=== PATIENT | male | born 1955 | race Asian ===

== ENCOUNTER 2023-01-25 14:11 | Inpatient (IN) | payer MEDICARE ==
[~2023-01-25] VITALS: Ht 165.1 cm; Wt 65.0 kg
[2023-01-25] VITALS (15 sets, daily range): BP systolic 93–190; BP diastolic 57–102; PULSE 69–114; RESP 22–32; TEMP 93.3–98.9; O2SAT 92–100
[2023-01-25 16:56] LABS: MEAN CORPUSCULAR HEMOGLOBIN 26.8 pg (26.0-34.0); MEAN CORPUSCULAR HGB CONC 29.6 G/dL (31.0-37.0); MEAN CORPUSCULAR VOLUME 90 fL (80-100); PLATELET COUNT (AUTO) 446 K/uL (150-450); RED CELL DISTRIBUTION WIDTH 26.9 % (11.5-14.5)
[2023-01-25] MEDS ORDERED: AZITHROMYCIN 500 MG/NS 250 ML IV ONE (17:00)
[2023-01-25] MEDS ORDERED: FUROSEMIDE 40 MG/4 ML VIAL IVP ONE ×2 (17:00)
[2023-01-25] MEDS ORDERED: CefTRIAXone 1 GM/DEXTROSE 50 ML IV ONE (17:00)
[2023-01-25] MEDS ORDERED: NITROGLYCERIN 2% (1 GM=INCH) OINTMENT PACKET TP ONE ×2 (17:00)
[2023-01-25 17:05] LABS: ANION GAP 11 mmol/L (8-16); CALCIUM, TOTAL 8.2 mg/dL (8.8-10.5); CARBON DIOXIDE 24 mmol/L (22-29); CHLORIDE 101 mmol/L (98-107); CREATININE 1.11 mg/dL (0.60-1.30); GLOMERULAR FILTR. RATE CALC > 60 mL/min (>60); GLUCOSE,RANDOM 133 mg/dL (70-110); SODIUM SERUM 136 mmol/L (136-145)
[2023-01-25] MEDS ORDERED: IPRATROPIUM BROMIDE 0.5 MG/2.5 ML NEB SOLUTION NEB ONE ×3 (17:11→17:15)
[2023-01-25] MEDS ORDERED: ALBUTEROL SULFATE 2.5 MG/0.5 ML NEB SOLUTION NEB ONE (17:12)
[2023-01-25] MEDS ORDERED: 0.9% SODIUM CHLORIDE 5 ML NEB SOLUTION NEB ONE (17:12)
[2023-01-25 17:15] LABS: APPEARANCE,URINE TURBID (CLEAR); BILIRUBIN,URINE NEGATIVE (NEGATIVE); GLUCOSE, URINE (UA) NEGATIVE (NEGATIVE); KETONES,URINE NEGATIVE (NEGATIVE); LEUKOCYTE ESTERASE ,URINE SMALL (NEGATIVE); NITRATE,URINE NEGATIVE (NEGATIVE); OCCULT BLOOD,URINE LARGE (NEGATIVE); PROTEIN,URINE 300-600,SEE CONFIRM mg/dL (NEGATIVE); SPECIFIC GRAVITIY, URINE 1.019 (1.003-1.030); UROBILINOGEN,URINE <=1.0 mg/dL (<=1.0)
[2023-01-25] MEDS ORDERED: ALBUTEROL SULFATE 2.5 MG/0.5 ML 5 ML NEB SOLUTION NEB ONE (17:15)
[2023-01-25 17:17] LABS: INR 1.2 (0.9-1.1); PROTHROMBIN TIME 12.4 SEC (9.4-11.6)
[2023-01-25] MEDS: ALBUTEROL SULFATE 2.5 MG/0.5 ML NEB SOLUTION NEB ONE ×2 (17:18→17:20)
[2023-01-25 17:33] LABS: ALANINE AMINOTRANSFERASE 21 U/L (12-78); ALBUMIN 2.6 g/dL (3.4-5.0); ALKALINE PHOSPHATASE 113 U/L (46-116); ASPARTATE AMINOTRANSFERASE 23 U/L (15-37); B-TYPE NATRIURETIC PEPTIDE 1370 pg/mL (0-100); BILIRUBIN,TOTAL 0.3 mg/dL (0.1-1.0); CREATINE KINASE, TOTAL ONLY 257 U/L (39-308); TOTAL PROTEIN, SERUM 7.9 g/dL (6.4-8.2)
[2023-01-25 17:34] LABS: HEMATOCRIT 18.1 % (41-53); HEMOGLOBIN 5.4 g/dL (13.5-17.5)
[2023-01-25 17:50] LABS: RBC,URINE Full Field /HPF (0-2); SULFOSALICYLIC ACID,URINE 4+ (Negative)
[2023-01-25 17:53] LABS: BACTERIA,URINE Moderate /HPF (None Seen)
[2023-01-25] MEDS ORDERED: PANTOPRAZOLE SODIUM 80 MG in SODIUM CHLORIDE 0.9% 100 ML IV SCH (18:00)
[2023-01-25 18:08] LABS: INR 1.2 (0.9-1.1); PROTHROMBIN TIME 12.5 SEC (9.4-11.6)
[2023-01-25 18:39] LABS: ABG BASE EXCESS -10.2 mmol/L (-2.0-3.0); ABG CARBOXYHEMOGLOBIN 2.7 % (0.0-1.5); ABG HCO3 16.7 mmol/L (22.0-26.0); ABG METHEMOGLOBIN 0.3 % (0.0-1.5); ABG OXYGEN CONTENT 7.7 mL/dL (15.0-23.0); ABG OXYHEMOGLOBIN 91.2 % (94.0-100.0); ABG PCO2 66 mmHg (35-45); PO2, ARTERIAL BG 97.5 mmHg (79.0-87.0); SOURCE, BLOOD GAS ARTERIAL; TEMPERATURE, FAHRENHEIT, BG 98.6 FAHREN (96.0-98.6)
[2023-01-25 18:40] LABS: ABG TOTAL HEMOGLOBIN 5.8 G/dL (12.0-18.0)
[2023-01-25 18:41] LABS: O2 DEVICE,BLOOD GAS BIPAP (ROOM AIR); SITE, BLOOD GAS RT RADIAL
[2023-01-25] MEDS ORDERED: SODIUM CHLORIDE 0.9% 1,000 ML IV ONE (18:45)
[2023-01-25] MEDS ORDERED: FUROSEMIDE 20 MG/2 ML VIAL IVP ONE (18:45)
[2023-01-25] MEDS ORDERED: IOHEXOL 350 MG/ML 100 ML VIAL ONE (18:55)
[2023-01-25] MEDS ORDERED: SODIUM CHLORIDE 0.9% 100 ML ONE (18:55)
[2023-01-25 19:00] LABS: PATHOLOGY REVIEW, DIFF YES
[2023-01-25 19:01] LABS: BAND NEUTROPHILS % (MANUAL) 0 % (0-5)
[2023-01-25 19:08] LABS: LYMPHOCYTES % (MANUAL) 20 % (22-44); MONOCYTES % (MANUAL) 5 % (2-9); SEGMENTED NEUTROPHILS % 75 % (40-70)
[2023-01-25] MEDS ORDERED: MORPHINE SULFATE 2 MG/ML SYRINGE IVP PRN (21:00)
[2023-01-25] MEDS ORDERED: ZOLPIDEM TARTRATE 5 MG TABLET PO PRN (21:00)
[2023-01-25] MEDS: METOPROLOL TARTRATE 25 MG TABLET PO SCH (21:00)
[2023-01-25] MEDS ORDERED: ONDANSETRON HCL 4 MG/2 ML VIAL IVP PRN (21:00)
[2023-01-25] MEDS ORDERED: HYDROCODONE/ACETAMINOPHEN 5-325 MG TABLET PO PRN (21:00)
[2023-01-25] MEDS ORDERED: BISACODYL 10 MG RECTAL RECTAL SUPPOSITORY PR PRN (21:00)
[2023-01-25] MEDS ORDERED: ACETAMINOPHEN 325 MG TABLET PO PRN (21:00)
[2023-01-25] MEDS ORDERED: MAGNESIUM HYDROXIDE SUSPENSION 30 ML UDCUP PO PRN (21:00)
[2023-01-25] MEDS: DOCUSATE SODIUM 100 MG CAPSULE PO SCH (21:00)
[2023-01-25 21:44] LABS: ABG HCO3 15.9 mmol/L (22.0-26.0); ABG METHEMOGLOBIN 0.3 % (0.0-1.5); ABG OXYGEN CONTENT 8.8 mL/dL (15.0-23.0); ABG OXYGEN SATURATION 90.9 % (95.0-98.0); ABG OXYHEMOGLOBIN 88.8 % (94.0-100.0); PO2, ARTERIAL BG 84.3 mmHg (79.0-87.0); SOURCE, BLOOD GAS ARTERIAL; TEMPERATURE, FAHRENHEIT, BG 98.6 FAHREN (96.0-98.6)
[2023-01-25] MEDS ORDERED: HydrALAZINE HCL 20 MG/ML VIAL IVP PRN (21:45)
[2023-01-25] MEDS: LORazepam 2 MG/ML VIAL IVP PRN (21:50)
[2023-01-25] MEDS: FUROSEMIDE 20 MG/2 ML VIAL IVP SCH (21:51)
[2023-01-25] MEDS ORDERED: ETOMIDATE 2 MG/ML 10 ML VIAL IVP ONE (22:00)
[2023-01-25] MEDS ORDERED: SODIUM BICARBONATE [ADULT] 8.4% 50 MEQ/50 ML SYRINGE IVP ONE (22:00)
[2023-01-25] MEDS ORDERED: ROCURONIUM BROMIDE 10 MG/ML 5 ML VIAL IVP ONE (22:00)
[2023-01-25] MEDS: PROPOFOL 1000 MG/ISO-OSM 100 ML IV PRN (23:24)
[2023-01-25 23:53] LABS: ABG PCO2 73 mmHg (35-45); ABG PH 7.045 (7.35-7.450)
[2023-01-25 23:54] LABS: ABG TOTAL HEMOGLOBIN 6.9 G/dL (12.0-18.0); SITE, BLOOD GAS RT RADIAL
[2023-01-26] VITALS (25 sets, daily range): BP systolic 83–146; BP diastolic 56–75; PULSE 46–71; RESP 20–25; TEMP 92.7–98.4; O2SAT 97–100
[2023-01-26 00:30] LABS: ABG BASE EXCESS -3.2 mmol/L (-2.0-3.0); ABG CARBOXYHEMOGLOBIN 2.1 % (0.0-1.5); ABG METHEMOGLOBIN 0.3 % (0.0-1.5); ABG OXYGEN CONTENT 10.4 mL/dL (15.0-23.0); ABG OXYGEN SATURATION 98.9 % (95.0-98.0); ABG OXYHEMOGLOBIN 96.5 % (94.0-100.0); ABG PCO2 38 mmHg (35-45); ABG PH 7.381 (7.35-7.450); ABG TOTAL HEMOGLOBIN 7.4 G/dL (12.0-18.0); PO2, ARTERIAL BG 135.4 mmHg (79.0-87.0); SITE, BLOOD GAS RT RADIAL; SOURCE, BLOOD GAS ARTERIAL; TEMPERATURE, FAHRENHEIT, BG 98.6 FAHREN (96.0-98.6)
[2023-01-26 00:31] LABS: PEEP,BG 5 cm H2O; VT, ABG 450 ml
[2023-01-26] MEDS ORDERED: PHENYLEPHRINE 200 MG/D5%-WATER 250 ML IV PRN (01:30)
[2023-01-26] MEDS: PANTOPRAZOLE SODIUM 80 MG in SODIUM CHLORIDE 0.9% 100 ML IV SCH ×3 (02:16→17:34)
[2023-01-26] MEDS: PROPOFOL 1000 MG/ISO-OSM 100 ML IV PRN ×3 (06:31→22:39)
[2023-01-26 06:45] LABS: BASOPHILS % (AUTO) 0.7 % (0.0-2.0); EOSINOPHILS % (AUTO) 0 % (1.0-6.0); HEMATOCRIT 25.1 % (41-53); HEMOGLOBIN 8.1 g/dL (13.5-17.5); LYMPHOCYTES # (AUTO) 1.2 K/uL (1.0-4.8); LYMPHOCYTES % (AUTO) 12.5 % (22.0-44.0); MEAN CORPUSCULAR HEMOGLOBIN 28.8 pg (26.0-34.0); MEAN CORPUSCULAR HGB CONC 32.1 G/dL (31.0-37.0); MEAN CORPUSCULAR VOLUME 90 fL (80-100); MONOCYTES # (AUTO) 0.5 K/uL (0.1-1.0); MONOCYTES % (AUTO) 5.2 % (2.0-9.0); NEUTROPHILS # (AUTO) 7.6 K/uL (1.8-7.7); NEUTROPHILS % (AUTO) 81.6 % (40.0-70.0); PLATELET COUNT (AUTO) 354 K/uL (150-450); RED CELL DISTRIBUTION WIDTH 20.2 % (11.5-14.5)
[2023-01-26 06:51] LABS: CALCIUM, TOTAL 7.8 mg/dL (8.8-10.5); CREATININE 1.3 mg/dL (0.60-1.30); POTASSIUM 3.8 mmol/L (3.5-5.1)
[2023-01-26] MEDS ORDERED: IOHEXOL 350 MG/ML 100 ML VIAL ONE (08:53)
[2023-01-26] MEDS ORDERED: SODIUM CHLORIDE 0.9% 100 ML ONE (08:53)
[2023-01-26] MEDS ORDERED: PANTOPRAZOLE SODIUM 40 MG DR TABLET PO SCH (09:00)
[2023-01-26] MEDS: FUROSEMIDE 20 MG/2 ML VIAL IVP SCH ×2 (10:07→20:20)
[2023-01-26] MEDS: ATORVASTATIN CALCIUM 20 MG TABLET PO SCH (10:08)
[2023-01-26] MEDS: DOCUSATE SODIUM 100 MG CAPSULE PO SCH ×2 (10:08→20:20)
[2023-01-26] MEDS: ETHYL ALCOHOL 62% ANTISEPTIC NASAL SANITIZER 0.6 ML AMPUL NASAL SCH ×2 (10:08→20:20)
[2023-01-26] MEDS: METOPROLOL TARTRATE 25 MG TABLET PO SCH (10:08)
[2023-01-26] MEDS: LISINOPRIL 5 MG TABLET PO SCH (10:11)
[2023-01-26] MEDS: IPRATROPIUM BROMIDE 0.5 MG/2.5 ML NEB SOLUTION NEB SCH ×4 (12:00→22:32)
[2023-01-26] MEDS: ALBUTEROL SULFATE 2.5 MG/0.5 ML NEB SOLUTION NEB SCH ×4 (12:00→22:32)
[2023-01-26] MEDS: CefTRIAXone SODIUM 2 GM in DEXTROSE 5%-WATER 50 ML IV SCH (13:07)
[2023-01-26] MEDS: MetroNIDAZOLE 500 MG/NACL 100 ML IV SCH ×2 (14:12→22:33)
[2023-01-26] MEDS: DOXYCYCLINE HYCLATE 100 MG in DEXTROSE 5%-WATER 100 ML IV SCH (17:29)
[2023-01-26] MEDS ORDERED: SODIUM CHLORIDE 0.9% 250 ML IV ONE (17:33)
[2023-01-26] MEDS: BUDESONIDE 0.5 MG/2 ML NEB SOLUTION NEB SCH (19:24)
[2023-01-27] VITALS (27 sets, daily range): BP systolic 105–130; BP diastolic 56–72; PULSE 50–106; RESP 20–24; TEMP 97–99.6; O2SAT 97–100
[2023-01-27] MEDS: IPRATROPIUM BROMIDE 0.5 MG/2.5 ML NEB SOLUTION NEB SCH ×6 (02:55→23:02)
[2023-01-27] MEDS: ALBUTEROL SULFATE 2.5 MG/0.5 ML NEB SOLUTION NEB SCH ×6 (02:55→23:02)
[2023-01-27] MEDS: PANTOPRAZOLE SODIUM 80 MG in SODIUM CHLORIDE 0.9% 100 ML IV SCH ×3 (03:41→22:36)
[2023-01-27] MEDS: DOXYCYCLINE HYCLATE 100 MG in DEXTROSE 5%-WATER 100 ML IV SCH ×2 (03:42→15:46)
[2023-01-27] MEDS ORDERED: SODIUM CHLORIDE 0.9% 250 ML IV ONE ×2 (05:27→14:05)
[2023-01-27] MEDS: PROPOFOL 1000 MG/ISO-OSM 100 ML IV PRN ×3 (05:30→22:37)
[2023-01-27] MEDS: MetroNIDAZOLE 500 MG/NACL 100 ML IV SCH ×3 (05:34→22:36)
[2023-01-27 05:35] LABS: CALCIUM, TOTAL 7.5 mg/dL (8.8-10.5); CREATININE 1.61 mg/dL (0.60-1.30); POTASSIUM 3.3 mmol/L (3.5-5.1)
[2023-01-27 06:05] LABS: BASOPHILS % (AUTO) 0.6 % (0.0-2.0); EOSINOPHILS % (AUTO) 1.1 % (1.0-6.0); HEMOGLOBIN 7.1 g/dL (13.5-17.5); LYMPHOCYTES # (AUTO) 1.2 K/uL (1.0-4.8); LYMPHOCYTES % (AUTO) 15.8 % (22.0-44.0); MEAN CORPUSCULAR HEMOGLOBIN 28.7 pg (26.0-34.0); MEAN CORPUSCULAR HGB CONC 32.1 G/dL (31.0-37.0); MEAN CORPUSCULAR VOLUME 89 fL (80-100); MONOCYTES # (AUTO) 0.7 K/uL (0.1-1.0); MONOCYTES % (AUTO) 9.4 % (2.0-9.0); NEUTROPHILS # (AUTO) 5.5 K/uL (1.8-7.7); NEUTROPHILS % (AUTO) 73.1 % (40.0-70.0); PLATELET COUNT (AUTO) 317 K/uL (150-450); RED BLOOD CELL COUNT(AUTO) 2.47 MIL/uL (4.50-5.90); RED CELL DISTRIBUTION WIDTH 20.9 % (11.5-14.5)
[2023-01-27] MEDS: BUDESONIDE 0.5 MG/2 ML NEB SOLUTION NEB SCH ×2 (08:02→19:26)
[2023-01-27] MEDS: ATORVASTATIN CALCIUM 20 MG TABLET PO SCH (08:57)
[2023-01-27] MEDS: FUROSEMIDE 20 MG/2 ML VIAL IVP SCH (08:57)
[2023-01-27] MEDS: LISINOPRIL 5 MG TABLET PO SCH (08:58)
[2023-01-27] MEDS: METOPROLOL TARTRATE 25 MG TABLET PO SCH (08:58)
[2023-01-27] MEDS: ETHYL ALCOHOL 62% ANTISEPTIC NASAL SANITIZER 0.6 ML AMPUL NASAL SCH ×2 (08:58→21:41)
[2023-01-27] MEDS: DOCUSATE SODIUM 100 MG CAPSULE PO SCH ×2 (08:59→21:00)
[2023-01-27] MEDS: CefTRIAXone SODIUM 2 GM in DEXTROSE 5%-WATER 50 ML IV SCH (12:44)
[2023-01-27] MEDS ORDERED: POTASSIUM CHLORIDE 20 MEQ ER TABLET PO PRN (13:00)
[2023-01-27] MEDS: POTASSIUM CHL 10 MEQ/WATER 50 ML IV PRN ×4 (14:08→23:30)
[2023-01-27] MEDS: FUROSEMIDE 40 MG/4 ML VIAL IVP SCH (21:41)
[2023-01-28] VITALS (27 sets, daily range): BP systolic 106–151; BP diastolic 56–79; PULSE 62–74; RESP 17–28; TEMP 97.3–99.4; O2SAT 97–100
[2023-01-28] MEDS: POTASSIUM CHL 10 MEQ/WATER 50 ML IV PRN ×5 (00:33→09:52)
[2023-01-28] MEDS: IPRATROPIUM BROMIDE 0.5 MG/2.5 ML NEB SOLUTION NEB SCH ×6 (02:52→22:50)
[2023-01-28] MEDS: ALBUTEROL SULFATE 2.5 MG/0.5 ML NEB SOLUTION NEB SCH ×6 (02:52→22:50)
[2023-01-28] MEDS: PROPOFOL 1000 MG/ISO-OSM 100 ML IV PRN ×2 (03:04→08:31)
[2023-01-28] MEDS: DOXYCYCLINE HYCLATE 100 MG in DEXTROSE 5%-WATER 100 ML IV SCH ×2 (04:06→17:17)
[2023-01-28] MEDS: MetroNIDAZOLE 500 MG/NACL 100 ML IV SCH ×3 (05:33→22:50)
[2023-01-28 06:16] LABS: BASOPHILS % (AUTO) 0.8 % (0.0-2.0); EOSINOPHILS % (AUTO) 1.1 % (1.0-6.0); HEMOGLOBIN 7.8 g/dL (13.5-17.5); LYMPHOCYTES # (AUTO) 1.2 K/uL (1.0-4.8); LYMPHOCYTES % (AUTO) 16.8 % (22.0-44.0); MEAN CORPUSCULAR HEMOGLOBIN 28.8 pg (26.0-34.0); MEAN CORPUSCULAR HGB CONC 32.4 G/dL (31.0-37.0); MEAN CORPUSCULAR VOLUME 89 fL (80-100); MONOCYTES # (AUTO) 0.7 K/uL (0.1-1.0); MONOCYTES % (AUTO) 9.9 % (2.0-9.0); NEUTROPHILS % (AUTO) 71.4 % (40.0-70.0); PLATELET COUNT (AUTO) 306 K/uL (150-450); RED BLOOD CELL COUNT(AUTO) 2.71 MIL/uL (4.50-5.90); RED CELL DISTRIBUTION WIDTH 21.2 % (11.5-14.5)
[2023-01-28 06:29] LABS: CALCIUM, TOTAL 7.8 mg/dL (8.8-10.5); CREATININE 1.5 mg/dL (0.60-1.30); POTASSIUM 3.4 mmol/L (3.5-5.1)
[2023-01-28] MEDS: BUDESONIDE 0.5 MG/2 ML NEB SOLUTION NEB SCH ×2 (08:00→19:43)
[2023-01-28] MEDS: PANTOPRAZOLE SODIUM 80 MG in SODIUM CHLORIDE 0.9% 100 ML IV SCH ×2 (08:16→18:47)
[2023-01-28] MEDS: FUROSEMIDE 40 MG/4 ML VIAL IVP SCH (08:17)
[2023-01-28] MEDS: ETHYL ALCOHOL 62% ANTISEPTIC NASAL SANITIZER 0.6 ML AMPUL NASAL SCH ×2 (08:17→21:27)
[2023-01-28] MEDS: ATORVASTATIN CALCIUM 20 MG TABLET PO SCH (08:18)
[2023-01-28] MEDS: DOCUSATE SODIUM 100 MG CAPSULE PO SCH ×2 (08:18→21:00)
[2023-01-28] MEDS: METOPROLOL TARTRATE 25 MG TABLET PO SCH (08:18)
[2023-01-28] MEDS: LISINOPRIL 5 MG TABLET PO SCH (08:19)
[2023-01-28] MEDS ORDERED: FUROSEMIDE 40 MG/4 ML VIAL IVP SCH (09:00)
[2023-01-28 11:49] LABS: ABG BASE EXCESS 2.1 mmol/L (-2.0-3.0); ABG CARBOXYHEMOGLOBIN 1.1 % (0.0-1.5); ABG HCO3 26.3 mmol/L (22.0-26.0); ABG METHEMOGLOBIN 0.3 % (0.0-1.5); ABG OXYGEN CONTENT 12.4 mL/dL (15.0-23.0); ABG OXYGEN SATURATION 95.1 % (95.0-98.0); ABG OXYHEMOGLOBIN 93.8 % (94.0-100.0); ABG PCO2 36 mmHg (35-45); ABG PH 7.468 (7.35-7.450); ABG TOTAL HEMOGLOBIN 9.3 G/dL (12.0-18.0); PO2, ARTERIAL BG 75.6 mmHg (79.0-87.0); SOURCE, BLOOD GAS ARTERIAL; TEMPERATURE, FAHRENHEIT, BG 99.4 FAHREN (96.0-98.6)
[2023-01-28 11:52] LABS: ABG A-A DIFF O2 95.2 mmHg (10-20.0); CPAP, BG 0 cm H2O; O2 DEVICE,BLOOD GAS VENTILATOR (ROOM AIR); PRESSURE SUPPORT, BG 8 cm H2O; SITE, BLOOD GAS LFT RADIAL; SPONTANEOUS VT, BG 470 ml; VENT MODE, BG CPAP (ROOM AIR)
[2023-01-28] MEDS: CefTRIAXone SODIUM 2 GM in DEXTROSE 5%-WATER 50 ML IV SCH (13:29)
[2023-01-28] MEDS: METOPROLOL TARTRATE 5 MG/5 ML VIAL IVP SCH ×2 (17:18→23:54)
[2023-01-28] MEDS ORDERED: SODIUM CHLORIDE 0.9% 500 ML IV ONE (17:24)
[2023-01-28] MEDS: LORazepam 2 MG/ML VIAL IVP PRN (19:11)
[2023-01-29] VITALS (20 sets, daily range): BP systolic 140–149; BP diastolic 70–76; PULSE 62–74; RESP 18–20; TEMP 98.6–99.2; O2SAT 93–100
[2023-01-29] MEDS: DOXYCYCLINE HYCLATE 100 MG in DEXTROSE 5%-WATER 100 ML IV SCH ×2 (03:44→15:44)
[2023-01-29] MEDS: IPRATROPIUM BROMIDE 0.5 MG/2.5 ML NEB SOLUTION NEB SCH ×6 (03:46→23:00)
[2023-01-29] MEDS: ALBUTEROL SULFATE 2.5 MG/0.5 ML NEB SOLUTION NEB SCH ×6 (03:46→23:00)
[2023-01-29] MEDS: PANTOPRAZOLE SODIUM 80 MG in SODIUM CHLORIDE 0.9% 100 ML IV SCH ×2 (04:36→14:36)
[2023-01-29] MEDS: MetroNIDAZOLE 500 MG/NACL 100 ML IV SCH ×3 (05:34→22:04)
[2023-01-29] MEDS: METOPROLOL TARTRATE 5 MG/5 ML VIAL IVP SCH ×3 (05:34→18:50)
[2023-01-29 05:43] LABS: BASOPHILS % (AUTO) 1.8 % (0.0-2.0); EOSINOPHILS % (AUTO) 0.7 % (1.0-6.0); HEMATOCRIT 27.3 % (41-53); HEMOGLOBIN 8.5 g/dL (13.5-17.5); LYMPHOCYTES # (AUTO) 1.2 K/uL (1.0-4.8); LYMPHOCYTES % (AUTO) 14.1 % (22.0-44.0); MEAN CORPUSCULAR HEMOGLOBIN 27.8 pg (26.0-34.0); MEAN CORPUSCULAR VOLUME 90 fL (80-100); MONOCYTES # (AUTO) 0.7 K/uL (0.1-1.0); MONOCYTES % (AUTO) 7.9 % (2.0-9.0); NEUTROPHILS # (AUTO) 6.5 K/uL (1.8-7.7); NEUTROPHILS % (AUTO) 75.5 % (40.0-70.0); PLATELET COUNT (AUTO) 338 K/uL (150-450); RED BLOOD CELL COUNT(AUTO) 3.04 MIL/uL (4.50-5.90)
[2023-01-29 05:52] LABS: CALCIUM, TOTAL 8.3 mg/dL (8.8-10.5); CREATININE 1.36 mg/dL (0.60-1.30); POTASSIUM 3.7 mmol/L (3.5-5.1)
[2023-01-29] MEDS: BUDESONIDE 0.5 MG/2 ML NEB SOLUTION NEB SCH ×2 (08:35→20:22)
[2023-01-29] MEDS: ATORVASTATIN CALCIUM 20 MG TABLET PO SCH (09:00)
[2023-01-29] MEDS: METOPROLOL TARTRATE 25 MG TABLET PO SCH (09:00)
[2023-01-29] MEDS: DOCUSATE SODIUM 100 MG CAPSULE PO SCH ×2 (09:00→20:15)
[2023-01-29] MEDS: LISINOPRIL 5 MG TABLET PO SCH (09:00)
[2023-01-29] MEDS: ETHYL ALCOHOL 62% ANTISEPTIC NASAL SANITIZER 0.6 ML AMPUL NASAL SCH ×2 (10:12→22:05)
[2023-01-29] MEDS: CefTRIAXone SODIUM 2 GM in DEXTROSE 5%-WATER 50 ML IV SCH (13:41)
[2023-01-30] VITALS (12 sets, daily range): BP systolic 123–163; BP diastolic 64–81; PULSE 61–78; RESP 18–20; TEMP 97.5–98.8; O2SAT 95–99
[2023-01-30] MEDS: METOPROLOL TARTRATE 5 MG/5 ML VIAL IVP SCH ×4 (00:17→18:33)
[2023-01-30] MEDS: PANTOPRAZOLE SODIUM 80 MG in SODIUM CHLORIDE 0.9% 100 ML IV SCH ×2 (00:53→11:04)
[2023-01-30] MEDS: IPRATROPIUM BROMIDE 0.5 MG/2.5 ML NEB SOLUTION NEB SCH ×6 (03:00→23:00)
[2023-01-30] MEDS: ALBUTEROL SULFATE 2.5 MG/0.5 ML NEB SOLUTION NEB SCH ×6 (03:00→23:00)
[2023-01-30] MEDS: DOXYCYCLINE HYCLATE 100 MG in DEXTROSE 5%-WATER 100 ML IV SCH ×2 (03:42→16:32)
[2023-01-30] MEDS: MetroNIDAZOLE 500 MG/NACL 100 ML IV SCH ×3 (05:43→21:35)
[2023-01-30] MEDS: BUDESONIDE 0.5 MG/2 ML NEB SOLUTION NEB SCH ×2 (07:29→21:00)
[2023-01-30 07:36] LABS: ANION GAP 12 mmol/L (8-16); CALCIUM, TOTAL 8.4 mg/dL (8.8-10.5); CARBON DIOXIDE 24 mmol/L (22-29); CHLORIDE 105 mmol/L (98-107); CREATININE 1.07 mg/dL (0.60-1.30); GLOMERULAR FILTR. RATE CALC > 60 mL/min (>60); GLUCOSE,RANDOM 65 mg/dL (70-110); POTASSIUM 3.6 mmol/L (3.5-5.1); SODIUM SERUM 140 mmol/L (136-145)
[2023-01-30] MEDS: ATORVASTATIN CALCIUM 20 MG TABLET PO SCH (09:00)
[2023-01-30] MEDS: DOCUSATE SODIUM 100 MG CAPSULE PO SCH ×2 (09:00→20:31)
[2023-01-30 09:16] LABS: BASOPHILS % (AUTO) 1.6 % (0.0-2.0); EOSINOPHILS % (AUTO) 1.5 % (1.0-6.0); HEMOGLOBIN 9.4 g/dL (13.5-17.5); LYMPHOCYTES # (AUTO) 1.2 K/uL (1.0-4.8); LYMPHOCYTES % (AUTO) 15.1 % (22.0-44.0); MEAN CORPUSCULAR HEMOGLOBIN 27.9 pg (26.0-34.0); MEAN CORPUSCULAR HGB CONC 31.2 G/dL (31.0-37.0); MEAN CORPUSCULAR VOLUME 89 fL (80-100); MONOCYTES # (AUTO) 0.7 K/uL (0.1-1.0); MONOCYTES % (AUTO) 8.3 % (2.0-9.0); NEUTROPHILS # (AUTO) 5.8 K/uL (1.8-7.7); NEUTROPHILS % (AUTO) 73.5 % (40.0-70.0); PLATELET COUNT (AUTO) 357 K/uL (150-450); RED BLOOD CELL COUNT(AUTO) 3.36 MIL/uL (4.50-5.90); RED CELL DISTRIBUTION WIDTH 21.2 % (11.5-14.5)
[2023-01-30] MEDS: ETHYL ALCOHOL 62% ANTISEPTIC NASAL SANITIZER 0.6 ML AMPUL NASAL SCH ×2 (09:16→20:31)
[2023-01-30] MEDS: FUROSEMIDE 20 MG TABLET PO SCH (12:16)
[2023-01-30] MEDS: PANTOPRAZOLE SODIUM 40 MG/VIAL IVP SCH ×2 (12:16→20:32)
[2023-01-30] MEDS: NICOTINE 14 MG/24 HOUR PATCH TD SCH (12:17)
[2023-01-30] MEDS: THIAMINE 100 MG/ML 2 ML VIAL IVP SCH (12:17)
[2023-01-30] MEDS: CefTRIAXone SODIUM 2 GM in DEXTROSE 5%-WATER 50 ML IV SCH (14:06)
[2023-01-31] VITALS (12 sets, daily range): BP systolic 140–155; BP diastolic 63–79; PULSE 56–96; RESP 18–22; TEMP 97.5–98.3; O2SAT 92–97
[2023-01-31] MEDS: METOPROLOL TARTRATE 5 MG/5 ML VIAL IVP SCH ×2 (00:04→06:01)
[2023-01-31] MEDS: IPRATROPIUM BROMIDE 0.5 MG/2.5 ML NEB SOLUTION NEB SCH ×5 (03:00→23:00)
[2023-01-31] MEDS: ALBUTEROL SULFATE 2.5 MG/0.5 ML NEB SOLUTION NEB SCH ×5 (03:00→23:00)
[2023-01-31] MEDS: DOXYCYCLINE HYCLATE 100 MG in DEXTROSE 5%-WATER 100 ML IV SCH ×2 (03:33→16:12)
[2023-01-31] MEDS: MetroNIDAZOLE 500 MG/NACL 100 ML IV SCH ×3 (05:32→21:17)
[2023-01-31] MEDS: LORazepam 2 MG/ML VIAL IVP PRN (05:59)
[2023-01-31] MEDS: BUDESONIDE 0.5 MG/2 ML NEB SOLUTION NEB SCH ×2 (08:00→19:32)
[2023-01-31] MEDS: PANTOPRAZOLE SODIUM 40 MG/VIAL IVP SCH ×2 (09:18→21:18)
[2023-01-31] MEDS: NICOTINE 14 MG/24 HOUR PATCH TD SCH (09:18)
[2023-01-31] MEDS: DOCUSATE SODIUM 100 MG CAPSULE PO SCH ×2 (09:19→21:17)
[2023-01-31] MEDS: FOLIC ACID 1 MG TABLET PO SCH (09:19)
[2023-01-31] MEDS: FUROSEMIDE 20 MG TABLET PO SCH (09:19)
[2023-01-31] MEDS: THIAMINE 100 MG/ML 2 ML VIAL IVP SCH (09:19)
[2023-01-31] MEDS: ATORVASTATIN CALCIUM 20 MG TABLET PO SCH (09:19)
[2023-01-31] MEDS: ETHYL ALCOHOL 62% ANTISEPTIC NASAL SANITIZER 0.6 ML AMPUL NASAL SCH ×2 (09:20→21:18)
[2023-01-31] MEDS: LISINOPRIL 5 MG TABLET PO SCH (10:21)
[2023-01-31] MEDS: METOPROLOL TARTRATE 25 MG TABLET PO SCH ×2 (10:21→21:17)
[2023-01-31] MEDS: CefTRIAXone SODIUM 2 GM in DEXTROSE 5%-WATER 50 ML IV SCH (13:21)
[2023-01-31 16:51] LABS: EOSINOPHILS % (AUTO) 0.8 % (1.0-6.0); HEMATOCRIT 32.9 % (41-53); LYMPHOCYTES # (AUTO) 1.1 K/uL (1.0-4.8); LYMPHOCYTES % (AUTO) 12.9 % (22.0-44.0); MEAN CORPUSCULAR HEMOGLOBIN 27.2 pg (26.0-34.0); MEAN CORPUSCULAR HGB CONC 30.4 G/dL (31.0-37.0); MEAN CORPUSCULAR VOLUME 90 fL (80-100); MONOCYTES # (AUTO) 0.9 K/uL (0.1-1.0); MONOCYTES % (AUTO) 10.2 % (2.0-9.0); NEUTROPHILS # (AUTO) 6.3 K/uL (1.8-7.7); NEUTROPHILS % (AUTO) 75.1 % (40.0-70.0); PLATELET COUNT (AUTO) 411 K/uL (150-450); RED BLOOD CELL COUNT(AUTO) 3.67 MIL/uL (4.50-5.90); RED CELL DISTRIBUTION WIDTH 20.3 % (11.5-14.5)
[2023-01-31 16:58] LABS: CALCIUM, TOTAL 8.4 mg/dL (8.8-10.5); CREATININE 1.26 mg/dL (0.60-1.30); POTASSIUM 3.5 mmol/L (3.5-5.1)
[2023-01-31] MEDS: QUEtiapine FUMARATE 25 MG TABLET PO SCH (21:17)
[2023-02-01] VITALS (11 sets, daily range): BP systolic 130–144; BP diastolic 62–70; PULSE 71–95; RESP 18; TEMP 97.4–98.2; O2SAT 93–100
[2023-02-01] MEDS: ALBUTEROL SULFATE 2.5 MG/0.5 ML NEB SOLUTION NEB SCH ×6 (01:55→23:00)
[2023-02-01] MEDS: IPRATROPIUM BROMIDE 0.5 MG/2.5 ML NEB SOLUTION NEB SCH ×6 (01:55→23:00)
[2023-02-01] MEDS: DOXYCYCLINE HYCLATE 100 MG in DEXTROSE 5%-WATER 100 ML IV SCH ×2 (03:18→17:10)
[2023-02-01] MEDS: MetroNIDAZOLE 500 MG/NACL 100 ML IV SCH ×3 (05:31→22:45)
[2023-02-01] MEDS: BUDESONIDE 0.5 MG/2 ML NEB SOLUTION NEB SCH ×2 (07:43→21:00)
[2023-02-01] MEDS: DOCUSATE SODIUM 100 MG CAPSULE PO SCH ×2 (08:51→21:05)
[2023-02-01] MEDS: FOLIC ACID 1 MG TABLET PO SCH (08:51)
[2023-02-01] MEDS: LISINOPRIL 5 MG TABLET PO SCH (08:51)
[2023-02-01] MEDS: ATORVASTATIN CALCIUM 20 MG TABLET PO SCH (08:51)
[2023-02-01] MEDS: FUROSEMIDE 20 MG TABLET PO SCH (08:51)
[2023-02-01] MEDS: QUEtiapine FUMARATE 25 MG TABLET PO SCH ×2 (08:54→21:05)
[2023-02-01] MEDS: METOPROLOL TARTRATE 25 MG TABLET PO SCH ×2 (08:54→21:29)
[2023-02-01] MEDS: THIAMINE 100 MG/ML 2 ML VIAL IVP SCH (08:55)
[2023-02-01] MEDS: NICOTINE 14 MG/24 HOUR PATCH TD SCH ×2 (08:55→09:00)
[2023-02-01] MEDS: ETHYL ALCOHOL 62% ANTISEPTIC NASAL SANITIZER 0.6 ML AMPUL NASAL SCH ×2 (08:56→21:05)
[2023-02-01] MEDS: PANTOPRAZOLE SODIUM 40 MG/VIAL IVP SCH ×2 (09:00→21:04)
[2023-02-01] MEDS: CefTRIAXone SODIUM 2 GM in DEXTROSE 5%-WATER 50 ML IV SCH (13:47)
[2023-02-02] VITALS (10 sets, daily range): BP systolic 112–132; BP diastolic 58–76; PULSE 70–99; RESP 18–20; TEMP 97.5–99.8; O2SAT 93–100
[2023-02-02] MEDS: IPRATROPIUM BROMIDE 0.5 MG/2.5 ML NEB SOLUTION NEB SCH ×4 (02:25→15:57)
[2023-02-02] MEDS: ALBUTEROL SULFATE 2.5 MG/0.5 ML NEB SOLUTION NEB SCH ×4 (02:25→15:57)
[2023-02-02] MEDS: DOXYCYCLINE HYCLATE 100 MG in DEXTROSE 5%-WATER 100 ML IV SCH ×2 (03:27→16:20)
[2023-02-02] MEDS: MetroNIDAZOLE 500 MG/NACL 100 ML IV SCH ×2 (05:24→13:52)
[2023-02-02] MEDS: BUDESONIDE 0.5 MG/2 ML NEB SOLUTION NEB SCH (08:06)
[2023-02-02] MEDS: FOLIC ACID 1 MG TABLET PO SCH (08:27)
[2023-02-02] MEDS: DOCUSATE SODIUM 100 MG CAPSULE PO SCH (08:27)
[2023-02-02] MEDS: LISINOPRIL 5 MG TABLET PO SCH (08:27)
[2023-02-02] MEDS: PANTOPRAZOLE SODIUM 40 MG/VIAL IVP SCH (08:28)
[2023-02-02] MEDS: ATORVASTATIN CALCIUM 20 MG TABLET PO SCH (08:28)
[2023-02-02] MEDS: ETHYL ALCOHOL 62% ANTISEPTIC NASAL SANITIZER 0.6 ML AMPUL NASAL SCH (08:28)
[2023-02-02] MEDS: FUROSEMIDE 20 MG TABLET PO SCH (08:28)
[2023-02-02] MEDS: THIAMINE 100 MG/ML 2 ML VIAL IVP SCH (08:28)
[2023-02-02] MEDS: METOPROLOL TARTRATE 25 MG TABLET PO SCH (08:28)
[2023-02-02] MEDS: NICOTINE 14 MG/24 HOUR PATCH TD SCH (08:29)
[2023-02-02] MEDS: QUEtiapine FUMARATE 25 MG TABLET PO SCH (08:29)
[2023-02-02] MEDS ORDERED: ATOR20TA PO (12:18)
[2023-02-02] MEDS ORDERED: BUDE0.5A NEB (12:18)
[2023-02-02] MEDS ORDERED: FOLI-130 PO (12:19)
[2023-02-02] MEDS ORDERED: FURO20 PO (12:20)
[2023-02-02] MEDS ORDERED: IPRA0.2S49 NEB (12:20)
[2023-02-02] MEDS ORDERED: LISI-892 PO (12:21)
[2023-02-02] MEDS ORDERED: METO25 PO (12:43)
[2023-02-02] MEDS ORDERED: QUET25TA36 PO (12:46)
[2023-02-02] MEDS ORDERED: PANT-31 PO (12:46)
[2023-02-02] MEDS ORDERED: THIA100V4 IVP (12:47)
[2023-02-02] MEDS ORDERED: CEFT2VIA60 IV (12:48)
[2023-02-02] MEDS ORDERED: DOXY-354 PO (12:49)
[2023-02-02] MEDS: CefTRIAXone SODIUM 2 GM in DEXTROSE 5%-WATER 50 ML IV SCH (13:52)
== END 2023-02-02 17:49 | DRG 208 ==
LOC: EMS 14:11 → ICU 21:30 → 5S 01-29 16:30 → 6N 02-02 02:00
PROVIDERS: ADMIT Internal Medicine; ATTEND Internal Medicine
PROC: 0BH17EZ Insertion of Endotracheal Airway into Trachea, Via Natural or Artificial Opening (ICD-10-PCS; principal; 2023-01-25)
PROC: 5A1945Z Respiratory Ventilation, 24-96 Consecutive Hours (ICD-10-PCS; 2023-01-25)
PROC: 30233N1 Transfusion of Nonautologous Red Blood Cells into Peripheral Vein, Percutaneous Approach (ICD-10-PCS; 2023-01-25)
PROC: 5A09357 Assistance with Respiratory Ventilation, Less than 24 Consecutive Hours, Continuous Positive Airway Pressure (ICD-10-PCS; 2023-01-25)
PROC: 05HB33Z Insertion of Infusion Device into Right Basilic Vein, Percutaneous Approach (ICD-10-PCS; 2023-01-26)
DX: J96.01 Acute respiratory failure with hypoxia (principal); J18.9 Pneumonia, unspecified organism; G93.41 Metabolic encephalopathy; I50.43 Acute on chronic combined systolic (congestive) and diastolic (congestive) heart failure; K92.1 Melena; J44.1 Chronic obstructive pulmonary disease with (acute) exacerbation; R57.9 Shock, unspecified; N17.9 Acute kidney failure, unspecified; Z94.1 Heart transplant status; E87.20 Acidosis, unspecified; J44.0 Chronic obstructive pulmonary disease with (acute) lower respiratory infection; I42.8 Other cardiomyopathies; F23 Brief psychotic disorder; C64.2 Malignant neoplasm of left kidney, except renal pelvis; Z66 Do not resuscitate; D64.9 Anemia, unspecified; I11.0 Hypertensive heart disease with heart failure; J96.02 Acute respiratory failure with hypercapnia; R31.0 Gross hematuria; F19.10 Other psychoactive substance abuse, uncomplicated; R31.9 Hematuria, unspecified; R82.81 Pyuria; K74.60 Unspecified cirrhosis of liver; R13.10 Dysphagia, unspecified; N28.89 Other specified disorders of kidney and ureter; I35.1 Nonrheumatic aortic (valve) insufficiency; E87.6 Hypokalemia; Z59.00 Homelessness unspecified; Z91.148 Patient's other noncompliance with medication regimen for other reason; Z87.891 Personal history of nicotine dependence; Z85.528 Personal history of other malignant neoplasm of kidney
CPT/HCPCS: 36245; 36569; 36600; 71045; 74177; 76700; 76770; 76937; 80048; 80053; 81001; 81002; 82140; 82550; 82805; 83605; 83880; 84132; 84484; 85025; 85610; 85730; 86850; 86900; 86901; 86923; 87070; 87081; 87086; 87186; 87205; 92526; 92610; 93005; 93306; 94002; 94003; 94640; 94660; 97116; 97530; 99291; C9113; G0378; J0360; J0456; J0696; J1940; J2060; J2270; J2370; J2704; J3411; J3480; J3490; J7030; J7050; J7060; P9016; Q9967; 36415-L1; 36415-TC; J7613